=== PATIENT | male | born 1995 | race African-American/Black ===

== ENCOUNTER 2023-06-01 17:49 | Inpatient (IN) | payer SELFPAY ==
--- NOTE | ~2023-06-01 | CT_ITS ---
EXAMINATION: CT abdomen pelvis w con DATE: 06/01/2023 20:26 INDICATION: prolapsed ileostomy, hx of colectomy, ab pain TECHNIQUE: Computed tomography (CT) of the abdomen and pelvis was performed with 100 mL Omnipaque-350 intravenous contrast. Automated exposure control and iterative reconstruction technique were employe d. The dose-length product was 477.15 mGy-cm. COMPARISON: None. FINDINGS: Lower thorax: Unremarkable Liver: Normal. Biliary/Gallbladder: Gallbladder is normal. No bile duct dilation. Pancreas: No mass or duct dilation. Spleen: Normal. Adrenals:No mass. Kidneys: No suspicious mass, obstructing stone, or hydronephrosis. GI tract: Mild distal esophageal and gastric wall edema. No large bowel dilation. Single loop of dila jyoti jejunum in the mid upper abdomen with mild wall thickening. No focal transition point. Appendix i s dilated to 8 mm, with mild inflammatory change and adjacent lymphadenopathy. Submucosal fat deposit ion in multiple loops of small bowel. Mesentery/Peritoneum: No ascites, mass, or free air. Retroperitoneum: No mass. Pelvis: Normal urinary bladder and prostate. 1.8 cm rim enhancing fluid collection in the deep pelvis , at the end of what appears to be a rectal stump. Soft Tissues: Left lower quadrant colostomy, containing a portion of nondilated large bowel and herni ated mesenteric fat. Bones: No acute osseous finding. IMPRESSION: Esophagitis/gastritis. Dilated jejunum with wall thickening in the mid upper abdomen, may represent inflammatory enteritis. Infectious and ischemic enteritis should remain in the differential. Appendix findings suspicious for early acute, uncomplicated appendicitis. Left lower quadrant colostomy, with herniation of bowel and mesenteric fat. No associated obstruction . 1.8 cm rim-enhancing fluid collection in the pelvis may represent a resolving postsurgical collection or pelvic abscess. Comparison to outside studies of the helpful. Reviewed, dictated and finalized at location K. IMPRESSION: Esophagitis/gastritis. Dilated jejunum with wall thickening in the mid upper abdomen, may represent in flammatory enteritis. Infectious and ischemic enteritis should remain in the di fferential. Appendix findings suspicious for early acute, uncomplicated appendicitis. Left lower quadrant colostomy, with herniation of bowel and mesenteric fat. No associated obstruction. 1.8 cm rim-enhancing fluid collection in the pelvis may represent a resolving p ostsurgical collection or pelvic abscess. Comparison to outside studies of the helpful.
--- NOTE | ~2023-06-01 | MR_ITS ---
EXAMINATION: MR abdomen wo/w con DATE: 06/04/2023 15:35 INDICATION: Abdominal pain and enteritis. TECHNIQUE: Magnetic resonance imaging (MRI) of the abdomen was performed without and with 16 mL Multi nicole intravenous contrast. Sequences included coronal T2-weighted SS-FSE, coronal and axial FS 2D-F IESTA, axial STIR FSE, axial T2-weighted SS-FSE, axial T2-weighted FS SS-FSE, axial diffusion-weighte d SE, axial dual-echo T1-weighted FSPGR, and axial and coronal T1-weighted LAVA. Postcontrast axial T 1-weighted LAVA images were obtained in a time course. Postcontrast coronal T1-weighted LAVA images w ere obtained. COMPARISON: CT dated 06/01/2023 FINDINGS: Heart size is normal. No pericardial or pleural effusion. Liver, gallbladder, spleen, pancreas, bilat eral adrenal glands and kidneys are normal. Again seen are postoperative change of prior distal colec karyna with left lower quadrant and colostomy. There is also postoperative change of the contralateral right rectus femoris muscle r. No dilated bowel to suggest obstruction. Appendix is normal with no pe riappendiceal inflammatory stranding to suggest acute appendicitis. No pathologically enlarged abdomi nal lymphadenopathy. Mild thoracolumbar dextrocurvature. Normal bone marrow signal throughout. IMPRESSION: 1. Left lower quadrant and colostomy. No bowel obstruction or other acute intra-abdominal/pelvic proc ess. Reviewed, dictated and finalized at location A. IMPRESSION: 1. Left lower quadrant and colostomy. No bowel obstruction or other acute intra -abdominal/pelvic process.
[2023-06-01 18:02] VITALS: BP 181/118; PULSE 66; RESP 14; TEMP 37.3; O2SAT 100
[2023-06-01 18:34] LABS: Basophils Percent Auto 0.4 % (0.2-1.2); Eosinophils Percent Auto 0.5 % (0-4.4); Hematocrit 39.4 % (42.0-52.0); Hemoglobin 13.2 g/dL (14.0-18.0); Immature Granulocyte Absolute 0.03 K/mm3 (0.00-0.031); Immature Granulocyte Percent A 0.4 % (0-0.5); Lymphocytes Absolute Auto 2.08 K/mm3 (0.9-3.2); Lymphocytes Percent Auto 24.3 % (18.3-44.2); Mean Corpuscular HGB Conc 33.5 g/dl (32-36); Mean Corpuscular Hemoglobin 30.7 pg (26-34); Mean Corpuscular Volume 91.6 fl (80-100); Mean Platelet Volume 9.2 fl (7.4-10.4); Monocytes Absolute Auto 0.6 K/mm3 (0.1-0.6); Neutrophils Absolute Auto 5.8 K/mm3 (1.3-6.7); Neutrophils Percent Auto 67.4 % (45.5-73.1); Platelet Count Result 295 k/mm3 (150-375); Red Cell Distribution Width 12.4 % (11.5-14.5); White Blood Count 8.6 K/mm3 (4.5-10.0)
[2023-06-01 18:46] LABS: Alanine Aminotransferase 27 U/L (6-50); Albumin Level 4.7 g/dL (3.5-5.1); Alkaline Phosphatase 63 U/L (38-126); Anion Gap 6 mmol/L (8-16); Aspartate Amino Transferase 35 U/L (17-59); Bilirubin,Total 1.3 mg/dL (0.2-1.3); Blood Urea Nitrogen 16 mg/dL (9-20); Calcium 9.8 mg/dL (8.4-10.2); Carbon Dioxide 32 mmol/L (22-30); Chloride 101 mmol/L (98-107); Estimated CRCL calculation 71 ml/min; Estimated Glomerular Filt Rate > 60; Glucose 105 mg/dL (65-110); Lipase 81 U/L (23-300); Sodium 139 mmol/L (137-145)
--- NOTE | 2023-06-01 19:40 | ED.ABDPAIN ---
HPI - Abdominal Pain General Chief Complaint: Abdominal Pain Stated Complaint: ILEOSTOMY ISSUES Time Seen by Provider: 06/01/23 19:09 History of Present Illness HPI narrative: Patient is a 28-year-old male presenting with ileostomy issues. Patient states that he had a rectal prolapse that required a colectomy and colostomy creation. States that 4 months ago he had a prolapse of the colostomy which ultimately required removal of the remainder of his colon and the creation of an ileostomy. States since that time the stoma at the ileostomy will intermittently prolapse. States that with adequate pain control he can typically reduce it but it eventually reprolapses if he stands for a while. He recently moved here from [place], has not established with a local surgeon. States that he was nauseous earlier but no vomiting. States that he has had some decreased output from the ileostomy. No further complaints. Related Data Home Medications Medication Instructions Recorded Confirmed No Home Medications 06/01/23 06/01/23 Allergies Allergy/AdvReac Type Severity Reaction Status Date / Time morphine Allergy Nausea and Verified 06/01/23 18:07 Vomiting Review of Systems Review of Systems: All systems reviewed & are unremarkable except as noted in HPI and below PMFSH Past Medical History Medical History DVT (deep venous thrombosis) High blood pressure Pulmonary embolism Surgical History Surgical History History of closure of ileostomy History of colon resection History of laparotomy Social History Social History Smoking status: Never smoker Alcohol intake: never Substance use: never Substance use type: does not use Lack of Transportation: No Lack of Food: Never True Current Housing: I Have Housing Concerned About Future Housing: No Difficulty Paying Gas/Electric Bills: No Difficulty Paying for Meds: No Currently Unemployed: No Education: Bachelor's Degree Difficulty w/ Childcare or Family Care: No Spiritual care concerns: No Exam Narrative: GENERAL: Uncomfortable appearing, nontoxic, no acute distress, pleasant and cooperative HEAD: Normocephalic, atraumatic. EYES: PERRLA and EOMI. ENT: Mucous membranes moist. NECK: Supple. CHEST: Clear to auscultation. No respiratory distress. HEART: Regular rate and rhythm. ABDOMEN: Soft, multiple healed incisional scars, ostomy in place with light brown stool in the bag, stoma appears to be prolapsed approximately 2 cm; abdomen is diffusely tender without guarding or rebound EXTREMITIES: Normal range of motion. SKIN: Warm, dry, no rash. NEURO: No focal deficits. Alert and oriented x3. PSYCH: Normal mood and affect. Course Vital Signs Vital signs: Vital Signs Temperature 99.1 F 06/01/23 18:02 Pulse Rate 66 06/01/23 18:02 Respiratory Rate 14 06/01/23 18:02 Blood Pressure 181/118 H 06/01/23 18:02 Pulse Oximetry 100 06/01/23 18:02 Oxygen Delivery Room Air 06/01/23 18:02 Temperature 96.5 F L 06/05/23 05:11 Pulse Rate 77 06/05/23 05:11 Respiratory Rate 18 06/05/23 05:11 Blood Pressure 167/84 H 06/05/23 05:11 Pulse Oximetry 100 06/05/23 05:11 Oxygen Delivery Room Air 06/04/23 19:30 MDM - Abdominal Pain MDM Narrative Medical decision making narrative: 28-year-old male presenting with abdominal pain. Patient hypertensive, his vitals within normal limits. Exam remarkable for the above. Blood work with a creatinine of 1.40. Unclear what baseline is. IV fluids are ongoing. CT abdomen pelvis is concerning for early acute uncomplicated appendicitis. There is herniation of bowel and mesenteric fat without evidence of obstruction at the site of colostomy. IV Zosyn has been ordered as well as another dose of pain medication
[2023-06-01 19:42] LABS: Appearance Urine Clear (Clear); Bilirubin Urine Negative (Negative); Blood Urine Negative (Negative); Color Urine Yellow (Yellow); Glucose Urine UA Negative (Negative); Ketones Urine Negative (Negative); Leukocyte Esterase Ur Negative LEU/UL (Negative); Nitrate Urine Negative (Negative); Protein Urine Negative (Negative); Specific Grav Ur 1.011 (1.001-1.035); Urobilinogen Urine 0.2 mg/dL (<2.0); pH Urine 6.5 (5.0-9.0)
[2023-06-01 19:45] LABS: Add Urine Microscopic? NO
[2023-06-01] MEDS: SODIUM CHLORIDE 0.9% IV 1,000 ML 999 ML IV CONT (19:50)
[2023-06-01] MEDS: HYDROmorphone HCL INJ (*CRX) 1 MG/ML SYR IV PUSH ×2 (19:50→22:17)
[2023-06-01] MEDS: ONDANSETRON INJ 4 MG/2 ML VIAL IV PUSH ×2 (19:51→23:35)
[2023-06-01 20:00] VITALS: BP 164/103; PULSE 61; RESP 18; O2SAT 99
[2023-06-01 20:28] LABS: Lactic Acid Reflex 0.8 mmol/L (0.7-2.0)
--- NOTE | 2023-06-01 22:31 | PM.IMHP ---
H&P: HPI History of Present Illness Date/Time: 06/01/23 22:31 Chief Complaint: Abdominal pain Narrative: Patient is a 28-year-old male presenting with ileostomy issues.? Patient states that he had a rectal prolapse that required a colectomy and colostomy creation.? States that 4 months ago he had a prolapse of the colostomy which ultimately required removal of the remainder of his colon and the creation of an ileostomy.? States since that time the stoma at the ileostomy will intermittently prolapse.? States that with adequate pain control he can typically reduce it but it eventually reprolapses if he stands for a while.? He recently moved here from [place], has not established with a local surgeon.? States that he was nauseous earlier but no vomiting.? States that he has had some decreased output from the ileostomy.? No further complaints. Review of Systems Review of Systems: All systems reviewed & are unremarkable except as noted in HPI and below PMFSH Social History Social History Smoking status: Never smoker Alcohol intake: never Substance use: never Substance use type: does not use Lack of Transportation: No Lack of Food: Never True Current Housing: I Have Housing Concerned About Future Housing: No Difficulty Paying Gas/Electric Bills: No Difficulty Paying for Meds: No Currently Unemployed: No Education: Bachelor's Degree Difficulty w/ Childcare or Family Care: No Spiritual care concerns: No Meds Home Medications and Allergies Home Medications Medication Instructions Recorded Confirmed Type No Home Medications 06/01/23 06/01/23 History Allergies Allergy/AdvReac Type Severity Reaction Status Date / Time morphine Allergy Nausea and Verified 06/01/23 18:07 Vomiting Vital Signs Vital Signs - 24 hr 06/01/23 18:02 Temperature 99.1 F Pulse Rate 66 Respiratory Rate 14 Blood Pressure 181/118 H Pulse Oximetry 100 Oxygen Delivery Room Air Exam Narrative: GENERAL: comfortable, nontoxic, no acute distress, pleasant and cooperative HEAD: Normocephalic, atraumatic. EYES: PERRLA and EOMI. ENT:? Mucous membranes moist. NECK: Supple. CHEST: Clear to auscultation.? No respiratory distress. HEART: Regular rate and rhythm.? ABDOMEN: Soft, multiple healed incisional scars, ileostomy in place with light brown stool in the bag, mild right lower abdominal tenderness EXTREMITIES: Normal range of motion.? SKIN: Warm, dry, no rash. NEURO: No focal deficits.? Alert and oriented x3. PSYCH: Normal mood and affect. H&P: Results Labs Labs: Short CBC 06/01/23 Range/Units 18:27 WBC 8.6 (4.5-10.0) K/mm3 Hgb 13.2 L (14.0-18.0) g/dL Hct 39.4 L (42.0-52.0) % Plt Count 295 (150-375) k/mm3 BMP 06/01/23 18:27 Sodium 139 Potassium 4.0 Chloride 101 Carbon Dioxide 32 H BUN 16 Creatinine 1.40 H Glucose 105 Calcium 9.8 Liver Function 06/01/23 Range/Units 18:27 Total Bilirubin 1.3 (0.2-1.3) mg/dL AST 35 (17-59) U/L ALT 27 (6-50) U/L Alkaline Phosphatase 63 (38-126) U/L Albumin 4.7 (3.5-5.1) g/dL Urine 06/01/23 Range/Units 19:27 Urine Color Yellow (Yellow) Urine Appearance Clear (Clear) Urine pH 6.5 (5.0-9.0) Ur Specific [place] 1.011 (1.001-1.035) Urine Protein Negative (Negative) mg/dL Urine Glucose (UA) Negative (Negative) mg/dL Assessment and Plan Assessment and plan (1) Acute appendicitis: Code(s): K35.80 - Unspecified acute appendicitis Status: Acute Assessment and Plan: general surgery consulted, recommended admission and IV antibiotic. Will see tomorrow. NPO after midnight (2) Ileostomy, has currently: Code(s): Z93.2 - Ileostomy status Status: Acute Assessment and Plan: Stable and in place. Plan Admission for observation, continue continue Zosyn every 6 hours, gentle
[2023-06-01 22:40] VITALS: BP 168/101; PULSE 61; RESP 18; O2SAT 100
[2023-06-01] MEDS: PIPERACILLIN/TAZ 4.5G/NS 100ML 4.5 GM/100 ML BAG IVPB (22:48)
--- NOTE | 2023-06-01 23:14 | PC.NURSE ---
called MD Huerta due to patient pain control medication is morphine and patient has allergy to morphine, inquired if can which to hydromorphone that patient received in ED. Md Huerta to place orders.
[2023-06-01 23:28] VITALS: BP 176/115; PULSE 97; RESP 16; TEMP 36.2; O2SAT 100; BMI 26.6
[2023-06-01] MEDS: HYDROmorphone HCL INJ (*CRX) 1 MG/ML SYR 0.5 MG IV PUSH (23:34)
[2023-06-01] MEDS: SODIUM CHLORIDE 0.9% IV 1,000 ML 125 ML IV CONT (23:45)
[2023-06-02] VITALS (8 sets, daily range): BP systolic 143–184; BP diastolic 98–115; PULSE 48–54; RESP 16–20; TEMP 36.1–36.4; O2SAT 98–100
[2023-06-02] MEDS: HYDROmorphone HCL INJ (*CRX) 1 MG/ML SYR 0.5 MG IV PUSH ×4 (04:20→12:51)
[2023-06-02] MEDS: ONDANSETRON INJ 4 MG/2 ML VIAL IV PUSH ×2 (04:21→12:32)
[2023-06-02] MEDS: PIPERACILLN/TAZ 3.375GM/NS50ML 3.375 GM/50 ML BAG IVPB (05:56)
[2023-06-02 06:59] LABS: Basophils Percent Auto 0.4 % (0.2-1.2); Eosinophils Absolute Auto 0.1 K/mm3 (0-0.3); Eosinophils Percent Auto 1.8 % (0-4.4); Immature Granulocyte Absolute 0.01 K/mm3 (0.00-0.031); Immature Granulocyte Percent A 0.1 % (0-0.5); Lymphocytes Absolute Auto 2.04 K/mm3 (0.9-3.2); Lymphocytes Percent Auto 27.9 % (18.3-44.2); Mean Corpuscular HGB Conc 32.5 g/dl (32-36); Mean Corpuscular Hemoglobin 30.7 pg (26-34); Mean Corpuscular Volume 94.3 fl (80-100); Mean Platelet Volume 9.4 fl (7.4-10.4); Monocytes Absolute Auto 0.6 K/mm3 (0.1-0.6); Monocytes Percent Auto 7.7 % (2.6-8.5); Neutrophils Absolute Auto 4.5 K/mm3 (1.3-6.7); Neutrophils Percent Auto 62.1 % (45.5-73.1); Platelet Count Result 247 k/mm3 (150-375); Red Blood Count 4.24 M/mm3 (4.6-6.20); Red Cell Distribution Width 12.3 % (11.5-14.5); White Blood Count 7.3 K/mm3 (4.5-10.0)
[2023-06-02] MEDS: SODIUM CHLORIDE 0.9% IV 1,000 ML 125 ML IV CONT ×2 (07:12→15:26)
[2023-06-02 07:18] LABS: Anion Gap 7 mmol/L (8-16); Blood Urea Nitrogen 13 mg/dL (9-20); Calcium 9.4 mg/dL (8.4-10.2); Carbon Dioxide 26 mmol/L (22-30); Chloride 104 mmol/L (98-107); Estimated CRCL calculation 71 ml/min; Estimated Glomerular Filt Rate > 60; Glucose 90 mg/dL (65-110); Potassium 4.3 mmol/L (3.4-5.0); Sodium 137 mmol/L (137-145)
--- NOTE | 2023-06-02 10:46 | PM.CNGS ---
Assessment and Plan Assessment and plan (1) Abnormal CT of the abdomen: Code(s): R93.5 - Abnormal findings on diagnostic imaging of other abdominal regions, including retroperitoneum Status: Acute Assessment and Plan: CT abdomen and pelvis was reviewed by Dr. Sue with the Radiologist. The appendix measures 7.5 mm and there is no significant inflammatory stranding around the appendix to suggest acute appendicitis. Clinically, this also does not correlate and his white blood cell count is normal. We will stop the IV antibiotics as we do not feel he has appendicitis, and I will start him on a diet. Some of his abdominal pain could be related to constipation, as he does have a large volume of stool throughout his colon on the CT. We will try stimulating his bowels and give a dose of milk of magnesia today. (2) Colostomy status: Code(s): Z93.3 - Colostomy status Status: Acute Assessment and Plan: The patient has a left-sided colostomy that is functioning well. The skin around his colostomy and the stoma appears healthy. He does have some mild prolapse of his stoma, but this is not causing any acute issues. He is already aware of how to gently reduce the stoma on his own. We discussed the need for him to be set up with a colorectal surgeon eventually as an outpatient. He currently does not have any medical insurance but recently started a new job. We recommended that he work on trying to get insurance as soon as possible, possibly through his job, so that he can be established with colorectal locally since he moved. (3) Constipation: Code(s): K59.00 - Constipation, unspecified Status: Acute Assessment and Plan: Will try stimulating his bowels to see if this helps with his abdominal pain. (4) High blood pressure: Code(s): I10 - Essential (primary) hypertension Status: Acute Assessment and Plan: Blood pressure is high on this admission. He does report being discharged with antihypertensive medication from his previous hospitalization in December. He decided to stop taking medication for his hypertension on his own. Discussed that he needs to establish care with a PCP. Management per hospitalist. (5) DVT (deep venous thrombosis): Code(s): I82.409 - Acute embolism and thrombosis of unspecified deep veins of unspecified lower extremity Status: Acute Assessment and Plan: Reportedly found to have DVT and PE on previous hospitalization in December. At that time he was started on anticoagulation and also stop taking this medication on his own after discharge. He may need further workup to see if he still requires anticoagulation since he is still within the 6 months following his diagnosis. Management per hospitalist. (6) Pulmonary embolism: Code(s): I26.99 - Other pulmonary embolism without acute cor pulmonale Status: Acute Plan I have discussed the patient's case and plan of care with Dr. Sue. Thank you for allowing us to see the patient in consultation and we will continue to follow along with you. History of Present Illness Consult details Consult date: 06/02/23 Reason for consult: other (Possible appendicitis) Requesting physician: Marlyn Castillo MD Narrative: This is a 28-year-old man who we have been asked to see in surgical consultation for possible acute appendicitis. He has an extensive surgical history and previously lived in [place], [place]. In September, he was on a job in [place] and developed rectal prolapse, which was an intermittent issue for him at the time. He went to the ER and ultimately required urgent surgery as they were not able to reduce it in the ER and he reportedly had some bowel ischemia. Initially, he had a colon resection with an anastomosis. He was discharged a few days after the surgery and quickly returned to the ER and was found to have an infection. It sounds to me as he had an anastomotic leak and was septic,
[2023-06-02] MEDS: MAGNESIUM HYDROXIDE SUSP 30 ML UDC PO (12:51)
[2023-06-02] MEDS: HYDROmorphone HCL INJ (*CRX) 1 MG/ML SYR IV PUSH ×3 (15:23→22:32)
--- NOTE | 2023-06-02 16:21 | PM.IMPN ---
Progress Note: A&P Assessment and Plan (1) Constipation: Code(s): K59.00 - Constipation, unspecified Status: Acute (2) Abnormal CT of the abdomen: Code(s): R93.5 - Abnormal findings on diagnostic imaging of other abdominal regions, including retroperitoneum Status: Acute (3) Gastroenteritis: Code(s): K52.9 - Noninfective gastroenteritis and colitis, unspecified Status: Acute Plan 28M w/ PMH HTN, DVT/PE and complex recent surgical history with rectal prolapse --> colectomy --> sepsis w/ diverting ileostomy --> PE/DVT --> ileostomy takedown to colostomy. He moved from [place] in September, and now presents with abdominal pain. Admitted on 06/01/23 1) stercoral colitis vs gastroenteritis - gen surgery consulted. noted appendicitis to be non surgical at the moment and zosyn was stopped. ok with medical team, he does not appear toxic - for constipation and gastroenteritis, start miralax daily, protonix and sucralfate. - still unable to tolerate PO intake 2/2 to nausea. cont zofran, prochloperazine and D5NS @ 100ml/hr. CTM - pain control with norco and dilaudid prn, cont tele and cont pulse ox for this reason. he is able to reduce his prolapsed stoma with pain meds - CT abdomen below: Esophagitis/gastritis. Dilated jejunum with wall thickening in the mid upper abdomen, may represent inflammatory enteritis. Infectious and ischemic enteritis should remain in the differential. Appendix findings suspicious for early acute, uncomplicated appendicitis. Left lower quadrant colostomy, with herniation of bowel and mesenteric fat. No associated obstruction. 1.8 cm rim-enhancing fluid collection in the pelvis may represent a resolving postsurgical collection or pelvic abscess. Comparison to outside studies of the helpful. 2) hx of HTN - he stopped his antihypertensives on his own when he moved to [place]. will monitor for now as he has external factors for HTN being in pain and such. he is ok with this 3) hx of DVT/PE - he stopped his anticoagulation sometime back, he is ok with watching and following up with primary, which he needs a new one. the PE was about 3 months ago per the patient when he was hospitalized for a time, so it was likely provoked. no evidence of DVT/PE currently. [facility] on board FEN: cardiac diet. D5NS @ 100ml/hr GI prophylaxis: protonix DVT prophylaxis: [facility] Lines: pIV Code Status: Full Code Dispo: stable More than 35 minutes spent on chart review, patient interaction and assessment and plan. Subjective Date/time seen: 06/02/23 16:21 Interval history: pt seen by surgery, abx stopped, he was given laxative. no further mgmt except monitoring. pt does report he is still nauseous and cannot eat, the says this happened the last time he was in the hospital. Review of Systems Review of Systems: All systems reviewed & are unremarkable except as noted in HPI and below Exam Const: General: comfortable and no acute distress Eyes: Pupils: Equal, round and reactive pupils present Resp: Effort & Inspection: normal respiratory effort Auscultation: clear to auscultation bilaterally Cardio: Rate: regular rate Rhythm: regular rhythm Heart sounds: no gallops, no murmurs and no rubs GI: Inspection: non-distended GI Palp: Yes Soft to palpation and No Guarding due to palpation present (GI) Auscultation: normal bowel sounds Other: ostomy with scant stool, prolapsed Extrem: General: no edema Objective Data Vital Signs Vital Signs: Vital Signs - 24 hr 06/01/23 18:02 06/01/23 22:40 06/01/23 20:00 Temperature 99.1 F Pulse Rate 66 61 61 Respiratory Rate 14 18 18 Blood Pressure 181/118 H 168/101 H 164/103 H Pulse Oximetry 100 100 99 Oxygen Delivery Room Air 06/01/23 23:28 06/02/23 04:51 06/02/23 08:00 Temperature 97.1 F L 97.5 F L Pulse Rate 97 54 L Respiratory Rate 16 16 Blood Pressure 176/115 H 143/115 H Pulse Oximetry 100 100 100 Oxygen Delivery Room Air
[2023-06-02] MEDS: PANTOPRAZOLE SODIUM IV 40 MG VIAL IV PUSH (16:42)
[2023-06-02] MEDS: SUCRALFATE 1 GM TABLET PO ×2 (16:43→22:32)
[2023-06-02] MEDS: DEXTROSE 5%/0.9% SOD CHL 1,000 ML 100 ML IV CONT (16:47)
[2023-06-02] MEDS: HEPARIN SODIUM 5,000 UNITS/ML VIAL 5000 UNITS SUB-Q (22:28)
[2023-06-02] MEDS: hydrALAZINE HCL 20 MG/ML VIAL 5 MG IV PUSH (22:32)
[2023-06-03] VITALS (14 sets, daily range): BP systolic 146–190; BP diastolic 79–121; PULSE 56–96; RESP 16; TEMP 36.4–36.6; O2SAT 100
[2023-06-03] MEDS: ONDANSETRON INJ 4 MG/2 ML VIAL IV PUSH ×2 (00:09→13:06)
[2023-06-03] MEDS: HYDROmorphone HCL INJ (*CRX) 1 MG/ML SYR IV PUSH ×8 (02:08→23:11)
[2023-06-03] MEDS: DEXTROSE 5%/0.9% SOD CHL 1,000 ML 100 ML IV CONT ×3 (02:13→21:30)
[2023-06-03 06:32] LABS: Hematocrit 42.8 % (42.0-52.0); Hemoglobin 13.8 g/dL (14.0-18.0); Mean Corpuscular HGB Conc 32.2 g/dl (32-36); Mean Corpuscular Hemoglobin 30.9 pg (26-34); Mean Corpuscular Volume 95.7 fl (80-100); Mean Platelet Volume 9.2 fl (7.4-10.4); Platelet Count Result 258 k/mm3 (150-375); Red Blood Count 4.47 M/mm3 (4.6-6.20); Red Cell Distribution Width 12.2 % (11.5-14.5); White Blood Count 7.5 K/mm3 (4.5-10.0)
[2023-06-03 06:57] LABS: Anion Gap 9 mmol/L (8-16); Blood Urea Nitrogen 10 mg/dL (9-20); Calcium 9.8 mg/dL (8.4-10.2); Carbon Dioxide 23 mmol/L (22-30); Chloride 104 mmol/L (98-107); Estimated CRCL calculation 83 ml/min; Estimated Glomerular Filt Rate > 60; Glucose 82 mg/dL (65-110); Potassium 4.3 mmol/L (3.4-5.0); Sodium 136 mmol/L (137-145)
[2023-06-03] MEDS: SUCRALFATE 1 GM TABLET PO ×4 (07:04→21:29)
[2023-06-03] MEDS: HEPARIN SODIUM 5,000 UNITS/ML VIAL 5000 UNITS SUB-Q ×3 (07:04→21:30)
[2023-06-03] MEDS: polyethylene glycoL 3350 17 GM POWD.PACK PO (07:51)
[2023-06-03] MEDS: PANTOPRAZOLE SODIUM IV 40 MG VIAL IV PUSH (07:51)
[2023-06-03] MEDS: MAGNESIUM HYDROXIDE SUSP 30 ML UDC PO (11:07)
--- NOTE | 2023-06-03 11:57 | PM.IMPN ---
Subjective Date/time seen: 06/03/23 11:57 Interval history: pt vomited last night, however this AM was able to tolerate bites of food, he still feels the abdominal pain is the same. he has had minimal stool output from the ostomy cont sucralfate and protonix, add senokot bid to his daily miralax. appreciate general surgery [place]s [facility]. Objective Data Vital Signs Vital Signs: Vital Signs - 24 hr 06/02/23 14:00 06/02/23 16:00 06/02/23 16:55 Temperature 97.0 F L Pulse Rate 51 L 50 L Respiratory Rate 20 Blood Pressure 168/101 H Pulse Oximetry 100 100 Oxygen Delivery Room Air 06/02/23 21:10 06/02/23 23:15 06/03/23 05:05 Temperature 97.6 F 97.9 F Pulse Rate 48 L 61 Respiratory Rate 16 16 Blood Pressure 184/102 H 168/98 H 146/79 H Pulse Oximetry 98 100 Oxygen Delivery 06/03/23 00:00 06/03/23 04:00 06/03/23 08:00 Temperature Pulse Rate 84 81 Respiratory Rate Blood Pressure Pulse Oximetry 100 Oxygen Delivery Room Air 06/03/23 08:00 Temperature Pulse Rate 56 L Respiratory Rate Blood Pressure Pulse Oximetry Oxygen Delivery Intake/Output Intake/Output: Intake & Output 05/31/23 06/01/23 06/02/23 06/03/23 23:59 23:59 23:59 23:59 Intake Total 1100 2000 2480 Output Total 700 850 Balance 1100 1300 1630 Meds/Results Medications: Active Medications Generic Name Dose Route Start Last Admin Trade Name Freq PRN Reason Stop Dose Admin Hydrocodone Bitart/Acetaminophen 1 tab 06/02/23 16:18 Hydrocodone/Acetaminophen (*Crx) 10-325 Mg Tablet PO Q4H PRN Pain Rated 4-6 Heparin Sodium (Porcine) 5,000 units 06/02/23 22:00 06/03/23 07:04 Heparin Sodium 5,000 Units/Ml Vial SUB-Q 5,000 units Q8HR RAMILA Administration Hydromorphone HCl 1 mg 06/02/23 15:16 06/03/23 11:09 Hydromorphone Hcl Inj (*Crx) 1 Mg/Ml Syr IV PUSH 1 mg Q3H PRN Administration Pain Rated 7-10 Dextrose/Sodium Chloride 1,000 mls @ 100 mls/hr 06/02/23 16:25 06/03/23 11:13 Dextrose 5% Sodium Chloride 0.9% IV CONT 100 mls/hr .Q10H RAMILA Administration Ondansetron HCl 4 mg 06/01/23 22:15 06/03/23 00:09 Ondansetron Inj 4 Mg/2 Ml Vial IV PUSH 4 mg Q4H PRN Administration Nausea Pantoprazole Sodium 40 mg 06/02/23 16:20 06/03/23 07:51 Pantoprazole Sodium Iv 40 Mg Vial IV PUSH 40 mg QAM RAMILA Administration Polyethylene Glycol 17 gm 06/03/23 09:00 06/03/23 07:51 Polyethylene Glycol 3350 17 Gm Powd.Pack PO 17 gm QAM RAMILA Administration Promethazine HCl 12.5 mg 06/02/23 15:12 Promethazine Hcl 25 Mg/Ml Ampul IV PUSH 06/03/23 18:00 Q4H PRN Nausea And Vomiting Sucralfate 1 gm 06/02/23 16:30 06/03/23 11:08 Sucralfate 1 Gm Tablet PO 1 gm ACHS RAMILA Administration Radiology Results: ITS Impressions Abdomen/Pelvis CT 06/01/23 20:43 IMPRESSION: Esophagitis/gastritis. Dilated jejunum with wall thickening in the mid upper abdomen, may represent inflammatory enteritis. Infectious and ischemic enteritis should remain in the differential. Appendix findings suspicious for early acute, uncomplicated appendicitis. Left lower quadrant colostomy, with herniation of bowel and mesenteric fat. No associated obstruction. 1.8 cm rim-enhancing fluid collection in the pelvis may represent a resolving postsurgical collection or pelvic abscess. Comparison to outside studies of the helpful. Labs Labs: Laboratory Results - last 24 hr 06/03/23 06:25 WBC 7.5 RBC 4.47 L Hgb 13.8 L Hct 42.8 MCV 95.7 MCH 30.9 MCHC 32.2 RDW 12.2 Plt Count 258 MPV 9.2 Sodium 136 L Potassium 4.3 Chloride 104 Carbon Dioxide 23 Anion Gap 9 BUN 10 Creatinine 1.20 Estim Creat Clear Calc 83 Estimated GFR > 60 Glucose 82 Calcium 9.8 Magnesium 2.0
[2023-06-03] MEDS: SENNOSIDES 8.6 MG TABLET PO (13:10)
[2023-06-03] MEDS: amLODIPine BESYLATE 5 MG TABLET PO (16:48)
--- NOTE | 2023-06-03 20:25 | PM.PNGS ---
Progress Note: A&P Assessment and Plan (1) Constipation: Code(s): K59.00 - Constipation, unspecified Status: Acute Assessment and Plan: Laxatives given, starting to have ostomy output now. Pain is a little better. (2) Abnormal CT of the abdomen: Code(s): R93.5 - Abnormal findings on diagnostic imaging of other abdominal regions, including retroperitoneum Status: Acute Assessment and Plan: Appendix normal without any periappendiceal inflammation. WBC normal. (3) Colostomy status: Code(s): Z93.3 - Colostomy status Status: Acute Assessment and Plan: Pt has some mild prolapse of his end colostomy that may be causing some pain and constipation. He will need to stay on some Miralax or stool softeners. He should get established with a colorectal surgeon in [place] as he may be a candidate for colostomy takedown in the future or have need to revise his colostomy due to he prolapse. Subjective Subjective Date/Time Seen: 06/03/23 20:25 Interval history: Pt had some nausea last night. Small amt of emesis. Feels better today. Starting to have some liquid colostomy output since taking MOM and Miralax yesterday. States pain is more around his colostomy today. Exam Const: General: comfortable and no acute distress Resp: Effort & Inspection: normal respiratory effort Auscultation: clear to auscultation bilaterally Cardio: Rate: regular rate Rhythm: regular rhythm GI: Other: Abd soft, nondistended, mild tenderness around LLQ colostomy. 3 cm prolapse of ostomy that is easily reducible . No RLQ tenderness. Objective Data Vital Signs Vital Signs: Vital Signs - 24 hr 06/02/23 21:10 06/02/23 23:15 06/03/23 05:05 Temperature 36.4 C 36.6 C Pulse Rate 48 L 61 Respiratory Rate 16 16 Blood Pressure 184/102 H 168/98 H 146/79 H Pulse Oximetry 98 100 Oxygen Delivery 06/03/23 00:00 06/03/23 04:00 06/03/23 08:00 Temperature Pulse Rate 84 81 Respiratory Rate Blood Pressure Pulse Oximetry 100 Oxygen Delivery Room Air 06/03/23 08:00 06/03/23 13:53 06/03/23 12:00 Temperature 36.4 C L Pulse Rate 56 L 77 64 Respiratory Rate 16 Blood Pressure 173/121 H Pulse Oximetry 100 Oxygen Delivery 06/03/23 14:58 06/03/23 16:00 06/03/23 18:28 Temperature Pulse Rate 68 Respiratory Rate Blood Pressure 190/110 H 154/86 H Pulse Oximetry Oxygen Delivery Intake/Output Intake/Output: Intake & Output 05/31/23 06/01/23 06/02/23 06/03/23 23:59 23:59 23:59 23:59 Intake Total 1100 2000 2960 Output Total 700 1650 Balance 1100 1300 1310 Meds/Results Medications: Active Medications Generic Name Dose Route Start Last Admin Trade Name Freq PRN Reason Stop Dose Admin Hydrocodone Bitart/Acetaminophen 1 tab 06/02/23 16:18 Hydrocodone/Acetaminophen (*Crx) 10-325 Mg Tablet PO Q4H PRN Pain Rated 4-6 Amlodipine Besylate 5 mg 06/03/23 15:55 06/03/23 16:48 Amlodipine Besylate 5 Mg Tablet PO 5 mg QAM RAMILA Administration Heparin Sodium (Porcine) 5,000 units 06/02/23 22:00 06/03/23 13:10 Heparin Sodium 5,000 Units/Ml Vial SUB-Q 5,000 units Q8HR RAMILA Administration Hydromorphone HCl 1 mg 06/02/23 15:16 06/03/23 20:14 Hydromorphone Hcl Inj (*Crx) 1 Mg/Ml Syr IV PUSH 1 mg Q3H PRN Administration Pain Rated 7-10 Dextrose/Sodium Chloride 1,000 mls @ 100 mls/hr 06/02/23 16:25 06/03/23 11:13 Dextrose 5% Sodium Chloride 0.9% IV CONT 100 mls/hr .Q10H RAMILA Administration Labetalol HCl 20 mg 06/03/23 15:54 Labetalol Hcl Inj 100 Mg/20 Ml Vial IV PUSH Q2HR PRN hypertension Ondansetron HCl 4 mg 06/01/23 22:15 06/03/23 13:06 Ondansetron Inj 4 Mg/2 Ml Vial IV PUSH 4 mg Q4H PRN Administration Nausea Pantoprazole Sodium 40 mg 06/02/23 16:20 06/03/23 07:51 Pantoprazole Sodium Iv 40 Mg Vial IV PUSH 40 mg QAM RAMILA A
[2023-06-03] MEDS: LABETALOL HCL INJ 100 MG/20 ML VIAL 20 MG IV PUSH (21:31)
[2023-06-04] VITALS (10 sets, daily range): BP systolic 120–165; BP diastolic 86–102; PULSE 58–83; RESP 16–18; TEMP 36.1–36.8; O2SAT 99–100
--- NOTE | 2023-06-04 00:12 | PC.NURSE ---
This patient is concerned and asked [facility] to relay to this charge nurse Abbie Berumen and his nurse Duke Lopez that he did not want any information disclosed to his emergency contact without speaking to him first. Please get permission from the patient before giving any information to contacts.
[2023-06-04] MEDS: HYDROmorphone HCL INJ (*CRX) 1 MG/ML SYR IV PUSH ×8 (02:00→23:14)
[2023-06-04 05:55] LABS: Hematocrit 44.5 % (42.0-52.0); Hemoglobin 14.9 g/dL (14.0-18.0); Mean Corpuscular HGB Conc 33.5 g/dl (32-36); Mean Corpuscular Hemoglobin 30.9 pg (26-34); Mean Corpuscular Volume 92.3 fl (80-100); Mean Platelet Volume 9.4 fl (7.4-10.4); Platelet Count Result 279 k/mm3 (150-375); Red Blood Count 4.82 M/mm3 (4.6-6.20); Red Cell Distribution Width 12.2 % (11.5-14.5); White Blood Count 6.7 K/mm3 (4.5-10.0)
[2023-06-04 05:58] LABS: Anion Gap 8 mmol/L (8-16); Blood Urea Nitrogen 8 mg/dL (9-20); Calcium 9.6 mg/dL (8.4-10.2); Carbon Dioxide 26 mmol/L (22-30); Chloride 102 mmol/L (98-107); Estimated CRCL calculation 83 ml/min; Estimated Glomerular Filt Rate > 60; Glucose 103 mg/dL (65-110); Potassium 3.9 mmol/L (3.4-5.0); Sodium 136 mmol/L (137-145)
[2023-06-04] MEDS: SUCRALFATE 1 GM TABLET PO ×4 (06:33→20:06)
[2023-06-04] MEDS: HEPARIN SODIUM 5,000 UNITS/ML VIAL 5000 UNITS SUB-Q ×3 (06:33→21:03)
[2023-06-04] MEDS: hydrALAZINE HCL 20 MG/ML VIAL 10 MG IV PUSH (06:34)
[2023-06-04] MEDS: DEXTROSE 5%/0.9% SOD CHL 1,000 ML 100 ML IV CONT (06:34)
[2023-06-04] MEDS: amLODIPine BESYLATE 5 MG TABLET PO (08:27)
[2023-06-04] MEDS: polyethylene glycoL 3350 17 GM POWD.PACK PO (08:27)
[2023-06-04] MEDS: SENNOSIDES 8.6 MG TABLET PO ×2 (08:27→16:51)
[2023-06-04] MEDS: ONDANSETRON INJ 4 MG/2 ML VIAL IV PUSH (08:27)
[2023-06-04] MEDS: PANTOPRAZOLE SODIUM IV 40 MG VIAL IV PUSH (08:32)
--- NOTE | 2023-06-04 09:37 | PM.PNGS ---
Progress Note: A&P Assessment and Plan (1) Parastomal hernia: Code(s): K43.5 - Parastomal hernia without obstruction or gangrene Status: Acute Assessment and Plan: likely the cause of his discomfort, ostomy fxn, zunilda diet, will need to address as outpt c CRS, hernia surgeon for reversal vs repair vs revision (2) Abnormal CT of the abdomen: Code(s): R93.5 - Abnormal findings on diagnostic imaging of other abdominal regions, including retroperitoneum Status: Acute Assessment and Plan: no s/s appendicitis, exam benign, WBC normal Subjective Subjective Date/Time Seen: 06/04/23 09:37 Interval history: still c some discomfort/pain around ostomy in LLQ, zunilda diet but poor appetite Review of Systems Review of Systems: All systems reviewed & are unremarkable except as noted in HPI and below Exam Const: General: cooperative, comfortable and no acute distress Resp: Auscultation: clear to auscultation bilaterally Cardio: Rate: regular rate Rhythm: regular rhythm GI: Inspection: normal to inspection, distended and incision GI Palp: Yes abdominal tenderness, Yes Soft to palpation, Yes Tenderness to palpation present (GI), No Guarding due to palpation present (GI), No Rigid due to palpation and Yes Hernia present Other: ostomy - viable, good fxn, parastomal hernia Objective Data Vital Signs Vital Signs: Vital Signs - 24 hr 06/03/23 13:53 06/03/23 12:00 06/03/23 14:58 Temperature 36.4 C L Pulse Rate 77 64 Respiratory Rate 16 Blood Pressure 173/121 H 190/110 H Pulse Oximetry 100 Oxygen Delivery 06/03/23 16:00 06/03/23 18:28 06/03/23 21:31 Temperature Pulse Rate 68 86 Respiratory Rate Blood Pressure 154/86 H Pulse Oximetry Oxygen Delivery 06/03/23 21:05 06/03/23 20:00 06/03/23 22:30 Temperature 36.6 C Pulse Rate 96 57 L Respiratory Rate 16 Blood Pressure 167/110 H Pulse Oximetry 100 Oxygen Delivery 06/04/23 01:15 06/04/23 00:00 06/04/23 04:00 Temperature Pulse Rate 64 65 Respiratory Rate Blood Pressure 145/99 H Pulse Oximetry Oxygen Delivery 06/03/23 20:44 06/04/23 06:00 Temperature 36.3 C L Pulse Rate 60 Respiratory Rate 16 Blood Pressure 165/100 H Pulse Oximetry 100 100 Oxygen Delivery Room Air Intake/Output Intake/Output: Intake & Output 06/01/23 06/02/23 06/03/23 06/04/23 23:59 23:59 23:59 23:59 Intake Total 1100 2000 3960 1000 Output Total 700 1650 1800 Balance 1100 1300 2310 -800 Meds/Results Medications: Active Medications Generic Name Dose Route Start Last Admin Trade Name Freq PRN Reason Stop Dose Admin Hydrocodone Bitart/Acetaminophen 1 tab 06/02/23 16:18 Hydrocodone/Acetaminophen (*Crx) 10-325 Mg Tablet PO Q4H PRN Pain Rated 4-6 Amlodipine Besylate 5 mg 06/03/23 15:55 06/04/23 08:27 Amlodipine Besylate 5 Mg Tablet PO 5 mg QAM RAMILA Administration Heparin Sodium (Porcine) 5,000 units 06/02/23 22:00 06/04/23 06:33 Heparin Sodium 5,000 Units/Ml Vial SUB-Q 5,000 units Q8HR RAMILA Administration Hydralazine HCl 10 mg 06/03/23 23:49 06/04/23 06:34 Hydralazine Hcl 20 Mg/Ml Vial IV PUSH 10 mg Q8H PRN Administration Blood Pressure - High Hydromorphone HCl 1 mg 06/02/23 15:16 06/04/23 06:37 Hydromorphone Hcl Inj (*Crx) 1 Mg/Ml Syr IV PUSH 1 mg Q3H PRN Administration Pain Rated 7-10 Dextrose/Sodium Chloride 1,000 mls @ 100 mls/hr 06/02/23 16:25 06/04/23 06:34 Dextrose 5% Sodium Chloride 0.9% IV CONT 100 mls/hr .Q10H RAMILA Administration Labetalol HCl 20 mg 06/03/23 15:54 06/03/23 21:31 Labetalol Hcl Inj 100 Mg/20 Ml Vial IV PUSH 20 mg Q2HR PRN Administration hypertension Ondansetron HCl 4 mg 06/01/23 22:15 06/04/23 08:27 Ondansetron Inj 4 Mg/2 Ml Vial IV PUSH 4 mg Q4H PRN Administration Nausea Pantoprazole Sodium 40 mg 06/02/23 16:20 06/04/23 08:32
--- NOTE | 2023-06-04 11:48 | PM.IMPN ---
Progress Note: A&P Assessment and Plan (1) Parastomal hernia: Code(s): K43.5 - Parastomal hernia without obstruction or gangrene Status: Acute (2) Gastroenteritis: Code(s): K52.9 - Noninfective gastroenteritis and colitis, unspecified Status: Acute (3) Constipation: Code(s): K59.00 - Constipation, unspecified Status: Acute (4) High blood pressure: Code(s): I10 - Essential (primary) hypertension Status: Acute Plan Plan 28M w/ PMH HTN, DVT/PE and complex recent surgical history with rectal prolapse --> colectomy --> sepsis w/ diverting ileostomy --> PE/DVT --> ileostomy takedown to colostomy. He moved from [place] in September, and now presents with abdominal pain. Admitted on 06/01/23 1) abdominal pain - gen surgery consulted. noted appendicitis to be non surgical at the moment, would keep this on the ddx. he still has intermittent bursts of pain at RLQ and continuous pain diffusely and at prolapse site. other ddx include stercoral colitis, gastroenteritis, chronic ischemia - surgery is setting him up for colorectal surgeon f/u as outpatient, for futher mgmt of prolapse of ostomy - pain and nausea still not resolved. continue miralax and senokot w/ dilaudid. protonix and sucralfate added as well. consider reglan in addition - with no resolution, will obtain MRA for futher investigation - continue D5NS as he has not tolerating much PO intake. - needing dilaudid still, keep tele and cont pulse ox on 2) hx of HTN - he stopped his antihypertensives on his own when he moved to [place]. has been uncontrolled. amlodipine started, increased on 06/04 to 10mg po qday. has hydralazine prn as well. 3) hx of DVT/PE - he stopped his anticoagulation sometime back, he is ok with watching and following up with primary, which he needs a new one. the PE was about 3 months ago per the patient when he was hospitalized for a time, so it was likely provoked. no evidence of DVT/PE currently. [facility] [place] board FEN: cardiac diet. D5NS @ 100ml/hr GI prophylaxis: protonix DVT prophylaxis: [facility] Lines: pIV Code Status: Full Code Dispo: stable More than 35 minutes spent on chart review, patient interaction and assessment and plan. Subjective Date/time seen: 06/04/23 11:48 Interval history: pt complains of unremitting nausea. he has colicky RLQ abdominal pain. cannot eat this AM. he still has severe pain at the prolapsed stoma. Review of Systems Review of Systems: All systems reviewed & are unremarkable except as noted in HPI and below Exam Const: General: comfortable Neck: Neck: supple Resp: Effort & Inspection: normal respiratory effort Auscultation: clear to auscultation bilaterally Cardio: Rate: regular rate Rhythm: regular rhythm Heart sounds: no gallops, no murmurs and no rubs GI: Inspection: non-distended GI Palp: Yes Firmness to palpation present (GI) and Yes Tenderness to palpation present (GI) Auscultation: normal bowel sounds Extrem: General: no edema Objective Data Vital Signs Vital Signs: Vital Signs - 24 hr 06/03/23 13:53 06/03/23 12:00 06/03/23 14:58 Temperature 97.5 F L Pulse Rate 77 64 Respiratory Rate 16 Blood Pressure 173/121 H 190/110 H Pulse Oximetry 100 Oxygen Delivery 06/03/23 16:00 06/03/23 18:28 06/03/23 21:31 Temperature Pulse Rate 68 86 Respiratory Rate Blood Pressure 154/86 H Pulse Oximetry Oxygen Delivery 06/03/23 21:05 06/03/23 20:00 06/03/23 22:30 Temperature 97.8 F Pulse Rate 96 57 L Respiratory Rate 16 Blood Pressure 167/110 H Pulse Oximetry 100 Oxygen Delivery 06/04/23 01:15 06/04/23 00:00 06/04/23 04:00 Temperature Pulse Rate 64 65 Respiratory Rate Blood Pressure 145/99 H Pulse Oximetry Oxygen Delivery 06/03/23 20:44 06/04/23 06:00 06/04/23 08:00 Temperature 97.3 F L Pulse Rate 60 60 Respiratory Rate 16 16 Blood Pressure 165/100 H Pulse Oximetry 10
[2023-06-05] VITALS: PULSE 100
--- NOTE | 2023-06-05 01:21 | PC.NURSE ---
Daylight Savings Time For Daylight Savings Time Ending in the Fall - Clocks are moved back. For Daylight Savings Time Beginning in the Spring - Clocks are moved ahead. For [facility], the time of change occurs at 0200 hrs. Time is taken from the linux server administrator. This entry on the patient's chart recognizes the change in time reflected during documentation. Example: 2 entries for vital signs may be charted for 0200 hrs.
--- NOTE | 2023-06-05 01:25 | PC.NURSE ---
informed Md kumar pt requesting to leave AMA, discussed leaving AMA with patient with kiln charger present. Pt has decided to wait until morning to leave AMa. Patient still at hospital at this time.
[2023-06-05] MEDS: HYDROmorphone HCL INJ (*CRX) 1 MG/ML SYR IV PUSH ×3 (01:44→08:12)
--- NOTE | 2023-06-05 02:49 | PC.NURSE ---
Patient on phone arguing with , called for one time dose of ativan to help patient calm down. 1 mg Ativan IV push
[2023-06-05] MEDS: LORazepam INJ (*CRX) 2 MG/ML VIAL 1 MG IV PUSH (02:59)
[2023-06-05 04:00] VITALS: PULSE 131
[2023-06-05] MEDS: HEPARIN SODIUM 5,000 UNITS/ML VIAL 5000 UNITS SUB-Q (05:10)
[2023-06-05] MEDS: SUCRALFATE 1 GM TABLET PO (05:10)
[2023-06-05 05:11] VITALS: BP 167/84; PULSE 77; RESP 18; TEMP 35.8; O2SAT 100
[2023-06-05] MEDS: hydrALAZINE HCL 20 MG/ML VIAL 10 MG IV PUSH (05:48)
[2023-06-05 07:00] LABS: Hematocrit 46.5 % (42.0-52.0); Hemoglobin 15.6 g/dL (14.0-18.0); Mean Corpuscular HGB Conc 33.5 g/dl (32-36); Mean Corpuscular Hemoglobin 30.8 pg (26-34); Mean Corpuscular Volume 91.9 fl (80-100); Mean Platelet Volume 9.8 fl (7.4-10.4); Platelet Count Result 301 k/mm3 (150-375); Red Blood Count 5.06 M/mm3 (4.6-6.20); Red Cell Distribution Width 12.1 % (11.5-14.5); White Blood Count 8.7 K/mm3 (4.5-10.0)
[2023-06-05 07:06] LABS: Anion Gap 15 mmol/L (8-16); Blood Urea Nitrogen 11 mg/dL (9-20); Carbon Dioxide 23 mmol/L (22-30); Chloride 99 mmol/L (98-107); Estimated CRCL calculation 71 ml/min; Estimated Glomerular Filt Rate > 60; Glucose 111 mg/dL (65-110); Potassium 3.9 mmol/L (3.4-5.0); Sodium 137 mmol/L (137-145)
[2023-06-05] MEDS: polyethylene glycoL 3350 17 GM POWD.PACK PO (08:12)
[2023-06-05] MEDS: PANTOPRAZOLE SODIUM IV 40 MG VIAL IV PUSH (08:12)
[2023-06-05] MEDS: amLODIPine BESYLATE 5 MG TABLET 10 MG PO (08:12)
[2023-06-05] MEDS: SENNOSIDES 8.6 MG TABLET PO (08:12)
--- NOTE | 2023-06-05 08:47 | PC.NURSE ---
Patient notified of risks of leaving AMA. Dr. Frankel and Dr. Paul notified. Follow up instructions given to patient. Patient signed AMA form.
--- NOTE | 2023-06-05 10:58 | PM.DS ---
DS: Admitting Diagnosis Discharge Date 06/05/23 Admitting Diagnosis abdominal pain DS: Discharge Diagnosis Discharge Diagnosis (1) Parastomal hernia: Code(s): K43.5 - Parastomal hernia without obstruction or gangrene Status: Acute (2) Gastroenteritis: Code(s): K52.9 - Noninfective gastroenteritis and colitis, unspecified Status: Acute (3) Constipation: Code(s): K59.00 - Constipation, unspecified Status: Acute (4) Colostomy status: Code(s): Z93.3 - Colostomy status Status: Acute (5) High blood pressure: Code(s): I10 - Essential (primary) hypertension Status: Acute DS: Summary Hospital Course Hospital Course: 28M w/ PMH HTN, DVT/PE and complex recent surgical history with rectal prolapse --> colectomy --> sepsis w/ diverting ileostomy --> PE/DVT --> ileostomy takedown to colostomy. He moved from [place] in September, and now presents with abdominal pain. Admitted on 06/01/23. He was treated with PPI, sucralfate, and laxatives for constipation and gastroenteritis with decent improvement. surgery was consulted for prolapsed stoma and appendiceal inflammation but conservation mgmt was taken. CT and MRA of abdomen otherwise did not reveal acute etiologies for his pain. On 06/05/23 he signed out AMA. Time Spent with Patient Time attestation: Total time spent providing and/or coordinating discharge services: Exam Narrative: unable to obtain DS: Data Data Completed and Pending Labs on day of discharge: Labs from last 24 hours 06/05/23 06:26 WBC 8.7 RBC 5.06 Hgb 15.6 Hct 46.5 MCV 91.9 MCH 30.8 MCHC 33.5 RDW 12.1 Plt Count 301 MPV 9.8 Sodium 137 Potassium 3.9 Chloride 99 Carbon Dioxide 23 Anion Gap 15 BUN 11 Creatinine 1.40 H Estim Creat Clear Calc 71 Estimated GFR > 60 Glucose 111 H Calcium 10.0 Discharge Plan Discharge Attending physician on discharge: Mena Frankel Consulting providers: Gilmer Sue Discharging Clinician: Mena Frankel Patient Disposition: Left Against Medical Advice Discharge Instructions: To receive your ostomy supplies you must set up an account with [employer] [facility] You must have a Primary Doctor to sign the prescription for your supplies, without a Dr, they can't not go through your insurance for it to be covered. Their phone number is [phone] Discharge Medications: No Action No Home Medications Date of admission: 06/03/23 09:53 Primary Care Provider: PHYSICIAN NOT ON STAFF,NONSTAFF Admitting Provider: Enedelia Huerta Attending physician on admission: Enedelia Huerta Condition: Stable
== END 2023-06-05 09:17 | disposition left against medical advice (07) | DRG 254 ==
LOC: ANHED 19:18 → ANH3MEDSUR 22:47
PROVIDERS: Emergency Medicine; Admitting Provider Student in an Organized Health Care Education/Training Program; Emergency Provider Emergency Medicine; Visit Provider General Practice
DX: K43.5 Parastomal hernia without obstruction or gangrene (principal); I10 Essential (primary) hypertension; K52.9 Noninfective gastroenteritis and colitis, unspecified; K59.00 Constipation, unspecified; R93.5 Abnormal findings on diagnostic imaging of other abdominal regions, including retroperitoneum; Z90.49 Acquired absence of other specified parts of digestive tract; Z93.3 Colostomy status; Z93.2 Ileostomy status; Z86.718 Personal history of other venous thrombosis and embolism; Z86.711 Personal history of pulmonary embolism; Z79.01 Long term (current) use of anticoagulants; Z91.148 Patient's other noncompliance with medication regimen for other reason
CPT/HCPCS: 36415; 74177; 74183; 80048; 80053; 81003; 83605; 83690; 83735; 85025; 85027; 96361; 96365; 96375; 96376; 99285; A9270; A9577; C9113; G0378; G0379; J0360; J1170; J1644; J2060; J2405; J2543; J7030; J7042; Q9967

== ENCOUNTER 2023-07-09 02:26 | Emergency (ER) | payer SELFPAY ==
[2023-07-09 02:31] VITALS: BP 176/100; PULSE 100; RESP 20; TEMP 37.1; O2SAT 98
[2023-07-09 04:30] VITALS: BP 169/99; PULSE 105; O2SAT 97
--- NOTE | 2023-07-09 04:31 | PC.NURSE ---
Pt to ED with left lower ostomy bag. Pt states stoma is prolapsed . Pt states he had the ostomy placed in Sep. due to cholecystitis. Pt presents with stoma bright red and inflammed in ostomy. Pt denies decreased output but increased pain. Pt states this happened a day or 2 ago .
--- NOTE | 2023-07-09 05:03 | ED.GENADULT ---
HPI - General Adult General Chief complaint: Unspecified Stated complaint: Stoma/colostomy prolapse Time Seen by Provider: 07/09/23 04:08 History of Present Illness HPI narrative: This is a 28-year-old male with a colostomy presenting for colostomy prolapse. Patient has had this colostomy since September. Typically is able to reduce on his own but today was having difficulty due to pain. He has been seen for this in our hospital but due to his complex surgical hx he has been referred to [facility] where he was given outpatient follow-up. He has not followed up as directed. The still is draining as normal. No other complaints. Related Data Allergies Allergy/AdvReac Type Severity Reaction Status Date / Time morphine Allergy Nausea and Verified 07/09/23 02:39 Vomiting PMFSH Past Medical History Medical History DVT (deep venous thrombosis) High blood pressure Pulmonary embolism Surgical History Surgical History History of closure of ileostomy History of colon resection History of laparotomy Social History Social History Smoking status: Never smoker Alcohol intake: never Substance use: never Substance use type: does not use Lack of Transportation: No Lack of Food: Never True Current Housing: I Have Housing Concerned About Future Housing: No Difficulty Paying Gas/Electric Bills: No Difficulty Paying for Meds: No Currently Unemployed: No Education: Bachelor's Degree Difficulty w/ Childcare or Family Care: No Spiritual care concerns: No Exam Narrative: APPEARANCE: No apparent distress. Head: atraumatic. EYES: EOMI, NOSE: Atraumatic NECK: Trachea midline RESPIRATORY: No increased rate of breathing CARDIOVASCULAR: RRR, ABDOMINAL: Stoma in place with mild prolapse. Easily reducible. Fecal matter in stoma bag. Rest of the abdomen is soft nontender MUSCULOSKELETAl: No obvious deformities NEURO: Alert. Moving 4/4 extremities SKIN:: Warm, dry. Normal color PSYCHIATRIC: Normal affect Course Vital Signs Vital signs: Vital Signs Temperature 98.7 F 07/09/23 02:31 Pulse Rate 100 07/09/23 02:31 Respiratory Rate 20 07/09/23 02:31 Blood Pressure 176/100 H 07/09/23 02:31 Pulse Oximetry 98 07/09/23 02:31 Oxygen Delivery Room Air 07/09/23 02:31 Temperature 98.7 F 07/09/23 02:31 Pulse Rate 105 H 07/09/23 04:30 Respiratory Rate 20 07/09/23 02:31 Blood Pressure 169/99 H 07/09/23 04:30 Pulse Oximetry 97 07/09/23 04:30 Oxygen Delivery Room Air 07/09/23 02:31 Medical Decision Making MDM Narrative Medical decision making narrative: -Course: 28-year-old with stoma presenting for stoma prolapse and abdominal pain. It was easily reduced here in the emergency department. It is draining stool as normal. No vomiting. Abdominal exam benign. Patient arrived with large soft drink and is tolerating PO. He has been given follow-up with a surgeon willing to take him on but has not followed up. VSS improved with pain medication. will be discharged follow-up with his surgeon for [place]. -DDX includes but is not limited to: Stomal prolapse, acute on chronic abdominal pain -Co-morbidities complicating care: Stoma prolapse -Social determinants of health: Works at [employer] -External Chart Review: Review of general surgery consultation admission notes from June of this year. -Interventions: Dilaudid 1 mg, -Shared decision making / Disposition: Discharged with surgery follow-up. Return precautions given -RX oxycodone 5mg, zofran, docusate, senna Vital Signs Vital Signs: Vital Signs Temperature 98.7 F 07/09/23 02:31 Pulse Rate 100 07/09/23 02:31 Respiratory Rate 20 07/09/23 02:31 Blood Pressure 176/100 H 07/09/23 02:31 Pulse Oximetry 98 07/09/23 02:
[2023-07-09] MEDS: HYDROmorphone HCL INJ (*CRX) 1 MG/ML SYR IM (05:13)
[2023-07-09 05:48] VITALS: BP 171/99; PULSE 69; RESP 18; O2SAT 100
== END 2023-07-09 05:50 | disposition home or self-care (01) ==
PROVIDERS: Emergency Provider Emergency Medicine
DX: K94.09 Other complications of colostomy (principal); Z86.711 Personal history of pulmonary embolism
CPT/HCPCS: 96372; 99283; J1170

== ENCOUNTER 2023-07-11 04:36 | Emergency (ER) | payer SELFPAY ==
[2023-07-11] VITALS (17 sets, daily range): BP systolic 142–200; BP diastolic 80–130; PULSE 61–106; RESP 12–24; TEMP 36.8; O2SAT 96–100
--- NOTE | ~2023-07-11 | CT_ITS ---
EXAMINATION: CT abdomen pelvis w con INDICATION: Colostomy pain TECHNIQUE: Computed tomographic images of the abdomen and pelvis were obtained after the administrati on of 100 cc of Omnipaque 350 intravenous contrast. The dose-length product (DLP) was 422.01 mGy-cm. Automated exposure control and iterative reconstruction technique were employed. COMPARISON: 06/01/2023 FINDINGS: Minimal dependent atelectasis is present in the lung bases. The heart size is normal. The l iver, spleen, pancreas, gallbladder, and adrenal glands are normal. The kidneys are unremarkable. No pathologically enlarged abdominal or pelvic lymph nodes are identified. No free intraperitoneal gas o r evidence of bowel obstruction. 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 The colostomy is stable in appearance when compared to the prior examination and without acu te findings. The appendix is normal. IMPRESSION: 1. No CT correlate for the patient's symptoms. Reviewed, dictated and finalized at location B. ESSOR/NURSE ANESTHETIST
--- NOTE | 2023-07-11 04:47 | ED.GENADULT ---
HPI - General Adult General Chief complaint: Unspecified <Shayne Rasmussen MD - Last Filed: 07/11/23 07:25> Stated complaint: weakness <Shayne Rasmussen MD - Last Filed: 07/11/23 07:25> Time Seen by Provider: 07/11/23 04:45 <Shayne Rasmussen MD - Last Filed: 07/11/23 07:25> History of Present Illness HPI narrative: This is a 28-year-old male, with history of colostomy and prior episodes of colostomy prolapse, who returns to the emergency department complaining of the same. The patient states he was walking from his place of work to home ( a significant distance with hills) when he felt fatigued and fell to his knees. In the process, he felt his colostomy prolapse. He complains of 8/10 pain at the colostomy. He denies head injury, loss consciousness or other complaints at this time. <Shayne Rasmussen MD - Last Filed: 07/11/23 07:25> Related Data Allergies/adverse reactions: Allergies Allergy/AdvReac Type Severity Reaction Status Date / Time morphine AdvReac Nausea and Verified 07/11/23 07:23 Vomiting <Shayne Rasmussen MD - Last Filed: 07/11/23 07:25> Review of Systems Review of Systems: CONSTITUTIONAL: Denies fever, chills, or sweats. CARDIOVASCULAR: Denies chest pain, palpitations, or edema. RESPIRATORY: Denies cough or dyspnea. GASTROINTESTINAL: Left upper quadrant abdominal pain at the colostomy site Denies nausea, vomiting, or diarrhea. GENITOURINARY: Denies dysuria or hematuria. SKIN: Denies rash or itching. MUSCULOSKELETAL: Denies back pain, joint pain, or myalgia. NEUROLOGIC: Denies headache, numbness, dizziness, or weakness. PSYCHIATRIC: Denies anxiety or depression. <Shayne Rasmussen MD - Last Filed: 07/11/23 07:25> PMFSH Past Medical History Medical History: Medical History DVT (deep venous thrombosis) High blood pressure Pulmonary embolism <Shayne Rasmussen MD - Last Filed: 07/11/23 07:25> Surgical History Surgical History: Surgical History History of closure of ileostomy History of colon resection History of laparotomy <Shayne Rasmussen MD - Last Filed: 07/11/23 07:25> Social History Social History: Social History Smoking status: Never smoker Alcohol intake: never Substance use: never Substance use type: does not use Lack of Transportation: No Lack of Food: Never True Current Housing: I Have Housing Concerned About Future Housing: No Difficulty Paying Gas/Electric Bills: No Difficulty Paying for Meds: No Currently Unemployed: No Education: Bachelor's Degree Difficulty w/ Childcare or Family Care: No Spiritual care concerns: No <Shayne Rasmussen MD - Last Filed: 07/11/23 07:25> Exam Narrative: GENERAL: Well-developed, well-nourished, in mild distress due to pain HEAD: Normocephalic, atraumatic. EYES: PERRLA and EOMI. CHEST: Clear to auscultation. No respiratory distress. No wheezes rales or rhonchi HEART: Regular rate and rhythm. No murmur heard. Normal peripheral pulses. ABDOMEN: Well-healed surgical scars. A colostomy is noted in the left upper quadrant that appears to be prolapsed. The tissue of the colostomy appears pink and healthy. There is brown, liquid stool without blood noted in the colostomy bag. The abdomen is soft, tender to palpation primarily in the left upper quadrant around the patient's colostomy site, nondistended, normal active bowel sounds. EXTREMITIES: Normal range of motion. No edema. NEURO: Alert and oriented x3. No focal deficit. Moving all 4 limbs spontaneously PSYCH: Normal mood and affect. <Shayne Rasmussen MD - Last Filed: 07/11/23 07:25> Course Course Emergency Course: 04:53 - Review of prior documentation shows the patient tolerated colostomy reduction 2 days ago wit
[2023-07-11] MEDS: ONDANSETRON INJ 4 MG/2 ML VIAL IV PUSH (05:07)
[2023-07-11] MEDS: HYDROmorphone HCL INJ (*CRX) 1 MG/ML SYR IV PUSH (05:08)
[2023-07-11] MEDS: SODIUM CHLORIDE 0.9% IV 1,000 ML 999 ML IV CONT (05:08)
[2023-07-11] MEDS: KETOROLAC 15 MG/ML VIAL (*BKC) IV PUSH (05:29)
--- NOTE | 2023-07-11 05:58 | PC.NURSE ---
ERP attempted to reduce stoma, was easily reducible. Stoma does start to protrude after time. Stoma still draining as usual, and easily reducible. Patient tolerated well.
[2023-07-11] MEDS: ACETAMINOPHEN 500 MG TABLET 1000 MG PO (06:03)
--- NOTE | 2023-07-11 06:08 | PC.NURSE ---
Patient calls this RN into room to state I don't want to go home, I can't go home. I will be in pain again and it's not fixed. This RN informed patient that he needs to follow up with the surgeon at [facility] as he was directed to earlier this year. Patient then states okay, I want to be transferred to [facility] then. I will wait for a bed. This RN informed patient that is a process to start and I am unsure of the bed status. Patient states he wishes to speak with the ERP to discuss possible transfer. ERP made aware.
[2023-07-11] MEDS: PROCHLORPERAZINE EDISYLATE 10 MG/2 ML VIAL IV PUSH (07:12)
[2023-07-11] MEDS: HYDROmorphone HCL INJ (*CRX) 1 MG/ML SYR 0.5 MG IV PUSH (07:27)
[2023-07-11 07:30] LABS: Lactic Acid Reflex 0.7 mmol/L (0.7-2.0)
[2023-07-11 07:31] LABS: Alanine Aminotransferase 17 U/L (6-50); Albumin Level 4.3 g/dL (3.5-5.1); Alkaline Phosphatase 76 U/L (38-126); Anion Gap 7 mmol/L (8-16); Aspartate Amino Transferase 28 U/L (17-59); Bilirubin,Total 1.7 mg/dL (0.2-1.3); Blood Urea Nitrogen 14 mg/dL (9-20); Calcium 9.2 mg/dL (8.4-10.2); Carbon Dioxide 26 mmol/L (22-30); Chloride 106 mmol/L (98-107); Estimated CRCL calculation 71 ml/min; Estimated Glomerular Filt Rate > 60; Glucose 92 mg/dL (65-110); Lipase 90 U/L (23-300); Potassium 3.6 mmol/L (3.4-5.0); Sodium 139 mmol/L (137-145)
[2023-07-11 07:40] LABS: Basophils Percent Auto 0.3 % (0.2-1.2); Eosinophils Percent Auto 0.3 % (0-4.4); Hematocrit 36.8 % (42.0-52.0); Hemoglobin 12.4 g/dL (14.0-18.0); Immature Granulocyte Absolute 0.03 K/mm3 (0.00-0.031); Immature Granulocyte Percent A 0.3 % (0-0.5); Lymphocytes Absolute Auto 2.13 K/mm3 (0.9-3.2); Lymphocytes Percent Auto 20.7 % (18.3-44.2); Mean Corpuscular HGB Conc 33.7 g/dl (32-36); Mean Corpuscular Hemoglobin 30.9 pg (26-34); Mean Corpuscular Volume 91.8 fl (80-100); Mean Platelet Volume 9.4 fl (7.4-10.4); Monocytes Absolute Auto 0.6 K/mm3 (0.1-0.6); Monocytes Percent Auto 5.8 % (2.6-8.5); Neutrophils Absolute Auto 7.5 K/mm3 (1.3-6.7); Neutrophils Percent Auto 72.6 % (45.5-73.1); Platelet Count Result 283 k/mm3 (150-375); Red Blood Count 4.01 M/mm3 (4.6-6.20); Red Cell Distribution Width 12.1 % (11.5-14.5); White Blood Count 10.3 K/mm3 (4.5-10.0)
== END 2023-07-11 08:59 | disposition home or self-care (01) ==
PROVIDERS: Preventive Medicine Aerospace Medicine; Emergency Provider Emergency Medicine
DX: K94.09 Other complications of colostomy (principal); Z86.718 Personal history of other venous thrombosis and embolism
CPT/HCPCS: 36415; 74177; 80053; 83605; 83690; 85025; 96361; 96374; 96375; 96376; 99284; A9270; J0780; J1170; J1885; J2405; J7030; Q9967